=== PATIENT | female | born 1965 | race Two or more races ===

== ENCOUNTER 2019-03-27 09:40 | Emergency (ER) | payer SELFPAY ==
[~2019-03-27] VITALS: Ht 160 cm; Wt 54.4 kg
[2019-03-27 09:48] VITALS: BP 124/49
[2019-03-27] MEDS ORDERED: KETOROLAC TROMETH 60MG/2ML VIAL IM ONE (11:15)
== END 2019-03-27 12:19 | disposition home or self-care (01) ==
LOC: ER 09:40
DX: S39.012A Strain of muscle, fascia and tendon of lower back, initial encounter (principal); W01.0XXA Fall on same level from slipping, tripping and stumbling without subsequent striking against object, initial encounter; Y93.89 Activity, other specified; Y92.89 Other specified places as the place of occurrence of the external cause; Y99.8 Other external cause status
CPT/HCPCS: 72070; 72100; 96372; 99283; J1885